=== PATIENT | female | born 1975 | race Caucasian/White ===

== ENCOUNTER → 2018-02-02 07:43 | Outpatient (CLI) | payer OTHER, SELFPAY ==
[2018-02-02 10:16] LABS: Free T3, Triiodothyronine Free 3.23 pg/mL (2.77-5.27); Free T4, Direct Thyroxine 1.23 ng/dL (0.78-2.19)
[2018-02-02 10:30] LABS: Thyroid Stimulating Hormone 1.25 uIU/mL (0.47-4.68)
== END ==
PROVIDERS: Visit Provider Internal Medicine
DX: E03.9 Hypothyroidism, unspecified (principal)
CPT/HCPCS: 36415; 84439; 84443; 84481

== ENCOUNTER → 2019-11-27 10:36 | Outpatient (CLI) | payer OTHER, SELFPAY ==
[2019-11-27 11:23] LABS: COVID19 -Nasal RAPID Negative (Negative)
== END ==
PROVIDERS: Visit Provider Physician Assistant
DX: Z11.59 Encounter for screening for other viral diseases (principal)
CPT/HCPCS: 87635

== ENCOUNTER → 2019-11-30 09:35 | Outpatient (CLI) | payer OTHER, SELFPAY ==
[2019-12-01 14:35] LABS: COVID19 Sendout Not Detected (Not Detect)
== END ==
PROVIDERS: Visit Provider Nurse Practitioner
DX: Z11.59 Encounter for screening for other viral diseases (principal)
CPT/HCPCS: 87635

== ENCOUNTER → 2019-12-13 10:19 | Outpatient (CLI) | payer OTHER, SELFPAY ==
--- NOTE | 2019-12-13 10:20 | DI.RAD.S_ITS ---
PROCEDURE: XR HIP W PEL IF DONE LT MIN 4V INDICATIONS: bilateral hip pain, LLE pain TECHNIQUE: AP pelvis with lateral view(s) of the bilateral hip(s). COMPARISON: None. FINDINGS: Bones: No fractures or dislocations. Pelvic ring appears intact. No suspicious bony lesions. Soft tissues: The visualized bowel gas pattern is normal. No suspicious soft tissue calcifications. IMPRESSION: Bilateral hip without acute osseous abnormalities or significant degenerative change. Dictated by: Juanjose Adrian M.D. on 12/13/2019 at 14:28 Approved by: Juanjose Adrian M.D. on 12/13/2019 at 14:28
== END ==
PROVIDERS: PCP Registered Nurse Diabetes Educator; Referring Provider Registered Nurse Diabetes Educator; Visit Provider Registered Nurse Diabetes Educator
DX: M25.552 Pain in left hip (principal); M25.551 Pain in right hip; M79.605 Pain in left leg
CPT/HCPCS: 73522

== ENCOUNTER → 2020-01-12 07:42 | Outpatient (CLI) | payer OTHER, SELFPAY ==
[2020-01-12 09:01] LABS: Free T3, Triiodothyronine Free 2.77 pg/mL (2.77-5.27); Free T4, Direct Thyroxine 0.65 ng/dL (0.78-2.19)
[2020-01-12 09:14] LABS: Thyroid Stimulating Hormone 3.62 uIU/mL (0.47-4.68)
== END ==
PROVIDERS: PCP Registered Nurse Diabetes Educator; Referring Provider Registered Nurse Diabetes Educator; Visit Provider Registered Nurse Diabetes Educator
DX: Z00.00 Encounter for general adult medical examination without abnormal findings (principal); E03.9 Hypothyroidism, unspecified
CPT/HCPCS: 84439; 84443; 84481

== ENCOUNTER → 2021-01-07 18:10 | Outpatient (CLI) | payer OTHER, SELFPAY | PROVIDERS: PCP Registered Nurse Diabetes Educator; Referring Provider Internal Medicine; Visit Provider Internal Medicine | DX: Z23 Encounter for immunization (principal) | CPT/HCPCS: 90471; 90686 ==